=== PATIENT | female | born 1995 | race Caucasian/White ===

== ENCOUNTER 2018-06-17 10:29 | Day surgery (SDC) | payer OTHER ==
[2018-06-16 16:47] VITALS: BMI 31.3
[2018-06-17] MEDS ORDERED: Oxymetazoline HCl 0.05% ( 15 ML ) ONE ×2 (11:07→11:20)
[2018-06-17 11:13] LABS: BHCG - Serum Negative (NEGATIVE); Pregs Control Background? CLEAR/WHITE (CLR/WHITE); Pregs Control Bar Appear? YES (CONTROL BAR)
[2018-06-17] MEDS ORDERED: Midazolam HCl 2 mg/2 ml Vial ONE ×2 (11:17→11:21)
[2018-06-17] MEDS ORDERED: Lidocaine 1% w/Epinephrine 1:100K 30 ML VIAL ONE (11:20)
[2018-06-17] MEDS ORDERED: Bacitracin Zinc Ointment 30 gm TUBE ONE (11:20)
[2018-06-17] MEDS ORDERED: Fentanyl 250 MCG/5 ML VIAL ONE (11:21)
[2018-06-17] MEDS ORDERED: Ondansetron PF 4 MG/2 ML Vial ONE ×2 (12:23→17:12)
[2018-06-17] MEDS ORDERED: Fentanyl 100 MCG/2 ML VIAL ONE (12:23)
[2018-06-17] MEDS ORDERED: Promethazine HCl 25 MG/ML VIAL ONE (13:31)
[2018-06-17] MEDS ORDERED: Hydrocodone-Acetamin 15 ML UDCUP ONE (15:22)
[2018-06-17] MEDS ORDERED: PROPOFOL 200 MG/20 ML VIAL ONE (17:12)
[2018-06-17] MEDS ORDERED: Lidocaine 1% PF 5 ML VIAL ONE (17:12)
[2018-06-17] MEDS ORDERED: Dexamethasone 20 MG/5 ML VIAL ONE (17:12)
--- NOTE | 2018-06-18 15:37 | OP ---
DATE OF PROCEDURE: 06/17/2018 PREOPERATIVE DIAGNOSES: 1. Chronic rhinosinusitis. 2. Nasal septal deviation. 3. Bilateral inferior turbinate hypertrophy. 4. Adenoid hypertrophy. 5. Nasal obstruction. POSTOPERATIVE DIAGNOSES: 1. Chronic rhinosinusitis. 2. Nasal septal deviation. 3. Bilateral inferior turbinate hypertrophy. 4. Adenoid hypertrophy. 5. Nasal obstruction. PROCEDURES: 1. Bilateral endoscopic sinus surgery, total ethmoidectomies. 2. Bilateral endoscopic sinus surgery, maxillary antrostomies. 3. Bilateral endoscopic sinus surgery, frontal sinusotomies. 4. Nasal septoplasty. 5. Bilateral inferior turbinate submucosal resection. 6. Adenoidectomy. SURGEON: Vitor Ortiz M.D. ESTIMATED BLOOD LOSS: 20 mL COMPLICATIONS: None. ANESTHESIA: GETA. PROCEDURE IN DETAIL: Patient was taken to the operating room and placed supine on the table. Genera l endotracheal anesthesia was obtained by the Anesthesia staff. Tube was secured in the left lower l ip. Patient was then placed in the beach chair position, and Afrin pledgets were placed in the nasal cavity. Injections of 1% lidocaine with 1:100,000 epinephrine were made into the nasal septum as we ll as the inferior turbinates. Patient was then prepped and draped in standard surgical fashion for nasal surgery. Following this, the Afrin pledgets were removed. A Milton incision was made on the left nasal septum. Submucoperichondrial dissection was performed. The deviated portions of the sept um included portions of the cartilage and the bony septum. These isolated areas were removed using t hree cutting rongeurs. There was noted to be a large dorsal and caudal strut, left intact for suppor t of the nose. The mucoperichondrial flaps were then reapproximated using a 4-0 gut stitch. Any str aight pieces of cartilage were crushed prior to this and placed between the mucoperichondrial flaps. Following this, the inferior turbinates were then punctured with a submucosal coblation wand, and dahl bmucosal coblations were performed of multiple areas of the inferior portion of the anterior inferior turbinate. Please note that the submucosal microdebrider was used to submucosally resect the anterior and inferi or portions of the inferior turbinates bilaterally. Following this, the inferior turbinates were lat erally fractured. Following this, the 0-degree scope was advanced into the middle meatus. The middl e turbinates were identified and were gently medialized using a Hartland elevator. Following this, the uncinate process was identified bilaterally and was anteriorly fractured using the ball-ended probe. Using the 0-degree microdebrider and the upbiting Blakesley forceps, the uncinate process was remove d bilaterally. Following this, the natural maxillary sinus ostia was identified by palpation using t he ball-ended probe. Following this, the maxillary sinus ostia was widened bilaterally using the cur jefe microdebrider and the straight Blakesley forceps. Following this, the ethmoidal bulla was identi fied bilaterally and was punctured on its medial and inferior aspect using the straight microdebrider . Following this, the ethmoidal bulla was removed using the microdebrider and Blakesley forceps. Th e grand lamella was then identified bilaterally and was punctured into the posterior ethmoidal cell. Working from posterior to anterior, the ethmoidal cells were opened in a mucosal-sparing technique u sing the microdebrider and upbiting Camila forceps. Following this, the 30-degree endoscope and th e curved 40-degree microdebrider blade was used to further resect the anterior ethmoidal cells bilate rally as well as identify the frontal sinus ostia, which was then widened bilaterally using the curve d microdebrider. Following this, the Mal-Hai mouth gag was introduced in the oral cavity and was retracted. The laryngeal mirror was used to visualize the adenoid pad, which was noted to be inflam ed and enlarged. This was removed using the suction Bovie device. Following this, cool saline was i rrigated through the nasal cavity and oral cavity and was suctioned. MeroPacks were placed within th e middle meatus. Chinchilla splints were placed and secured. The patient tolerated the procedure well.
== END 2018-06-17 15:50 | disposition home or self-care (01) ==
LOC: SDC 10:29
PROVIDERS: ATTEND Otolaryngology Plastic Surgery within the Head & Neck
PROC: 099Q8ZZ Drainage of Right Maxillary Sinus, Via Natural or Artificial Opening Endoscopic (ICD-10-PCS; principal; 2018-06-17)
PROC: 09TL7ZZ Resection of Nasal Turbinate, Via Natural or Artificial Opening (ICD-10-PCS; principal; 2018-06-17)
PROC: 099S8ZZ Drainage of Right Frontal Sinus, Via Natural or Artificial Opening Endoscopic (ICD-10-PCS; principal; 2018-06-17)
PROC: 09SM0ZZ Reposition Nasal Septum, Open Approach (ICD-10-PCS; principal; 2018-06-17)
PROC: 099R8ZZ Drainage of Left Maxillary Sinus, Via Natural or Artificial Opening Endoscopic (ICD-10-PCS; principal; 2018-06-17)
PROC: 0CTQXZZ Resection of Adenoids, External Approach (ICD-10-PCS; principal; 2018-06-17)
PROC: 09TU8ZZ Resection of Right Ethmoid Sinus, Via Natural or Artificial Opening Endoscopic (ICD-10-PCS; principal; 2018-06-17)
PROC: 099T8ZZ Drainage of Left Frontal Sinus, Via Natural or Artificial Opening Endoscopic (ICD-10-PCS; principal; 2018-06-17)
PROC: 09TV8ZZ Resection of Left Ethmoid Sinus, Via Natural or Artificial Opening Endoscopic (ICD-10-PCS; principal; 2018-06-17)
DX: J32.8 Other chronic sinusitis (principal); J34.2 Deviated nasal septum; J34.3 Hypertrophy of nasal turbinates; J35.2 Hypertrophy of adenoids; J34.89 Other specified disorders of nose and nasal sinuses; Z88.5 Allergy status to narcotic agent; Z91.040 Latex allergy status
CPT/HCPCS: 36415; 84703; 85014; 96374; 96375; J1100; J2001; J2250; J2405; J2550; J2704; J3010; J3490